=== PATIENT | male | born 1945 | race Caucasian/White ===

== ENCOUNTER 2023-12-06 12:33 | Outpatient (CLI) | payer MEDICARE | END 2023-12-06 12:34 | disposition home or self-care (01) | LOC: CSHCP 12:33 | PROVIDERS: ATTEND Internal Medicine | DX: R91.8 Other nonspecific abnormal finding of lung field (principal); J44.9 Chronic obstructive pulmonary disease, unspecified | CPT/HCPCS: 94060; 94664; 94726; 94729; 94760 ==

== ENCOUNTER 2024-01-12 11:41 | Outpatient (CLI) | payer MEDICARE ==
[2024-01-12 13:57] LABS: Hematocrit 39.1 % (38.8-50.0); Hemoglobin 12.6 g/dL (13.5-17.5); Mean Corpuscular HGB CONC 32.2 g/dL (32.0-36.0); Mean Corpuscular Volume 83.9 fL (81.2-95.1); Mean Platelet Volume 10.4 fL (7.4-10.4); Platelet Count 278 10x3/uL (150-450); RBC Distribution Width 15.6 % (11.5-14.5); Red Blood Cell (RBC) Count 4.66 10x6/uL (4.32-5.72); White Blood Cell (WBC) Count 10.8 10x3/uL (3.5-10.5)
[2024-01-12 14:10] LABS: Anion Gap 12 mmol/L (10-20); BUN (Urea Nitrogen) 15 mg/dL (8.4-25.7); Calc. Creatinine Clearance 0 mL/min (70-130); Carbon Dioxide 28 mmol/L (23-31); Chloride 105 mmol/L (98-107); Estimated GFR 85; Glucose 116 mg/dL (83-110); Potassium 3.7 mmol/L (3.5-5.1); Sodium 141 mmol/L (136-145)
== END 2024-01-12 11:42 | disposition home or self-care (01) ==
LOC: CSHLAB 11:41
PROVIDERS: ATTEND Surgery
DX: Z01.818 Encounter for other preprocedural examination (principal); K62.89 Other specified diseases of anus and rectum; C34.81 Malignant neoplasm of overlapping sites of right bronchus and lung; I71.43 Infrarenal abdominal aortic aneurysm, without rupture; R59.0 Localized enlarged lymph nodes
CPT/HCPCS: 78815; 80048; 85027; 93005; A9552; 93010

== ENCOUNTER 2024-01-15 06:23 | Day surgery (SDC) | payer MEDICARE ==
[2024-01-12 12:30] VITALS: BMI 18.1
[2024-01-15] MEDS ORDERED: EPINEPHrine 1 MG/ML VIAL ONE (07:04)
[2024-01-15] MEDS ORDERED: Bupivacaine PF 0.5% 30 ML VIAL ONE (07:04)
[2024-01-15] MEDS ORDERED: fentaNYL 50 mcg/mL 1 mL Vial ONE (07:15)
[2024-01-15] MEDS ORDERED: PROPOFOL 20 ML ONE (07:15)
[2024-01-15] MEDS ORDERED: Lidocaine 1% PF 5 ML VIAL ONE (07:15)
[2024-01-15] MEDS ORDERED: Lidocaine 2% 6 ML (Jelly) SYR ONE (07:43)
[2024-01-15] MEDS ORDERED: CEFAZOLIN 2 GM VIAL ONE (07:52)
[2024-01-15] MEDS ORDERED: Ondansetron PF 4 MG/2 ML Vial ONE (08:59)
[2024-01-15] MEDS ORDERED: HYDROcodone/Acetaminophen 5/325 mg Tablet PO PRN (09:47)
== END 2024-01-15 10:50 | disposition home or self-care (01) ==
LOC: CSHSDC 06:23
PROVIDERS: ATTEND Surgery
PROC: 0DBQ8ZX Excision of Anus, Via Natural or Artificial Opening Endoscopic, Diagnostic (ICD-10-PCS; principal; 2024-01-15)
PROC: 0JH63WZ Insertion of Totally Implantable Vascular Access Device into Chest Subcutaneous Tissue and Fascia, Percutaneous Approach (ICD-10-PCS; 2024-01-15)
DX: C34.91 Malignant neoplasm of unspecified part of right bronchus or lung (principal); C21.0 Malignant neoplasm of anus, unspecified; E78.5 Hyperlipidemia, unspecified; J44.9 Chronic obstructive pulmonary disease, unspecified; K21.9 Gastro-esophageal reflux disease without esophagitis; I25.10 Atherosclerotic heart disease of native coronary artery without angina pectoris; Z79.82 Long term (current) use of aspirin; Z79.899 Other long term (current) drug therapy; F17.210 Nicotine dependence, cigarettes, uncomplicated; Z86.73 Personal history of transient ischemic attack (TIA), and cerebral infarction without residual deficits; Z95.1 Presence of aortocoronary bypass graft
CPT/HCPCS: 36561; 46606; 71045; A6258; C1788; J0171; J0665; J1642; J2405; J2704; J3010; 88305; 88341; 88342